=== PATIENT | female | born 1945 | race Caucasian/White ===

== ENCOUNTER → 2016-09-23 | Outpatient (CLI) | payer MEDICARE ==
[2016-06-18 19:57] VITALS: BP 147/75
[~2016-09-23] MED LIST: DIAZ5TAB PO; HYDR-971 PO
--- NOTE | 2016-09-23 15:55 | KCIC ---
PROCEDURE KUB. HISTORY Pelvic pain and pressure for 3 weeks with constipation. TECHNIQUE KUB contains 2 images. COMPARISON None. FINDINGS No dilated small bowel loop is apparent. Stool burden in the colon is increased. No definite calculus projecting over the left renal shadow is apparent. 2 millimeter calculus projecting over the right renal shadow is noted. There are degenerative changes in the spine. There are calcified phleboliths in the pelvis. IMPRESSION Nonobstructive bowel gas pattern. Electronically signed by: Derek Carbajal MD (Sep 23, 2016 15:54:08)
== END ==
LOC: KCIC MRI 15:07
PROVIDERS: ATTEND Psychiatry & Neurology Neurology with Special Qualifications in Child Neurology
DX: K59.00 Constipation, unspecified (principal); R10.2 Pelvic and perineal pain
CPT/HCPCS: 74000

== ENCOUNTER 2016-10-14 14:40 | Emergency (ER) | payer MEDICARE, OTHER ==
[~2016-10-14] VITALS: Ht 165.1 cm; Wt 63.5 kg
--- NOTE | 2016-10-14 15:31 | PHYS DOC ---
Past Medical History Past Medical History: Arthritis, Diabetes-Type II, Other Additional Past Medical Histor: neuropathy, tremors Past Surgical History: Other Additional Past Surgical Histo: stomach, blood clot on breast, hemorrhoids Alcohol Use: None Drug Use: None Adult General Chief Complaint Chief Complaint: MECHANICAL FALL [facility] HPI Patient is a 70 year old female who presents with complaint of head injury and right ring finger pain after suffering a mechanical fall prior to arrival. The patient states that she lost her balance while walking outside and fell, hitting the left side of her head on concrete. Patient denies loss of consciousness. The patient states that bystanders helped her to her feet. Patient states that she was able to ambulate with assistance. The patient was taken home by bystanders. The patient was brought to the emergency department by family for further evaluation. The patient has history of tremors and follows a Dr. Roca. Patient states that she has been having worsening tremors over the past 2 weeks and she thinks that this may have caused her to fall. Patient denied any chest pain, lightheadedness, or dizziness prior to her fall. Review of Systems Review of Systems Constitutional: Denies fever or chills [] Eyes: Denies change in visual acuity, redness, or eye pain [] HENT: Denies nasal congestion or sore throat [] Respiratory: Denies cough or shortness of breath [] Cardiovascular: No additional information not addressed in HPI [] GI: Denies abdominal pain, nausea, vomiting, bloody stools or diarrhea [] : Denies dysuria or hematuria [] Musculoskeletal: Right ring finger pain [] Integument: Denies rash or skin lesions [] Neurologic: Headache, denies focal weakness or sensory changes [] Allergies Allergies Allergies Coded Allergies Type Severity Reaction Last Updated Verified No Known Drug Allergies 02/08/15 No Physical Exam Physical Exam Constitutional: Well developed, well nourished, no acute distress, non-toxic appearance. [] HENT: Normocephalic, mild soft tissue swelling along left temporoparietal region with superficial abrasion, no lacerations, bilateral external ears normal , oropharynx moist, no oral exudates, nose normal. [] Eyes: PERRLA, EOMI, conjunctiva normal, no discharge. [] Neck: Normal range of motion, no tenderness, supple, no stridor. [] Cardiovascular:Heart rate regular rhythm, no murmur [] Lungs & Thorax: Bilateral breath sounds clear to auscultation [] Abdomen: Bowel sounds normal, soft, no tenderness, no masses, no pulsatile masses. [] Skin: Warm, dry, no erythema, no rash. [] Back: No tenderness, no CVA tenderness. [] Extremities: Moderate PIP joint swelling of right ring finger with ecchymosis, limited range of motion secondary to pain, capillary refill 2+ distally, no other obvious musculoskeletal deformities. [] Neurologic: Alert and oriented X 3, normal motor function, normal sensory function, no focal deficits noted. [] Current Patient Data Vital Signs Vital Signs Date Time Temp Pulse Resp B/P Pulse Ox O2 Delivery O2 Flow Rate FiO2 10/14/16 15:00 98.5 100 20 120/89 95 Room Air 98.5 EKG EKG Interpreted by me: Heart rate 97, sinus tachycardia, normal intervals, normal axis, no acute ST/T-wave abnormalities present [] Radiology/Procedures Radiology/[place] [address] IMAGING REPORT Signed PATIENT: FRANCIA YANES ACCOUNT: [id number] : 1945 LOCATION: ER AGE: 70 SEX: F EXAM STATUS: REG ER ORD. PHYSICIAN: ROBB DILLON MD REASON: ring finger injury PROCEDURE: HAND RIGHT 3V Portable right hand, 3 views, 10/14/2016: History: Fall, injury There is patchy bony demineralization. There are degenerative changes at scattered interphalangeal joints and the first CMC joint. No acute fracture or dislocation is identified. IMPRESSION: No acute bony abnormality is detected. DICTATED and SIGNED BY: YOLANDA MADRID MD DATE: 10/14/16 1547 CC: ROBB DILLON MD; DAWNA LUDWIG MD ~ [place] [id number] IMAGING REPORT Signed PATIENT: FRANCIA YANES ACCOUNT: [id number] : 1945 LOCATION: ER AGE: 70 SEX: F EXAM STATUS: REG ER ORD. PHYSICIAN: ROBB DILLON MD REASON: fall, left-sided head injury PROCEDURE: HEAD WO CONTRAST CT of the head without contrast, 10/14/2016: History: Fall Comparison is made to a study from 07/31/2015. There is mild cerebral atrophy. The ventricles are within normal limits in size. There is no shift of the midline structures. There is no evidence of acute intracranial hemorrhage or mass effect. Minimal bilateral deep white matter lucencies are noted compatible with chronic ischemic change. IMPRESSION: 1. Chronic findings as described above. 2. No acute intracranial abnormality is detected. PQRS Compliance Statement: One or more of the following individualized dose reduction techniques were utilized for this examination: 1. Automated exposure control 2. Adjustment of the mA and/or kV according to patient size 3. Use of iterative reconstruction technique DICTATED and SIGNED BY: YOLANDA MADRID MD DATE: 10/14/16 161 CC: ROBB DILLON MD; DAWNA LUDWIG MD ~ [] Course & Med Decision Making Course & Med Decision Making Pertinent Labs and Imaging studies reviewed. (See chart for details) The patient lead and unremarkable course in the emergency department. The patient's CT imaging and hand x-rays were both negative for severe injury. I spoke with Dr. Roca, patient's neurologist, in regard to the patient's tremors. He stated that he did not want to make any medication changes at this time until he had a chance to see her in the office within the next week. Due to headaches, the patient does display symptoms consistent with mild concussion from her head injury. Patient was given head injury precautions while in the emergency department. Advised to return to the emergency department for any worsening symptoms. Patient voiced understanding and in agreement with treatment plan. Dragon Disclaimer Dragon Disclaimer This electronic medical record was generated, in whole or in part, using a voice recognition dictation system. Departure Departure Impression: Primary Impression: Closed head injury with concussion Additional Impression: Finger sprain Disposition: 01 HOME, SELF-CARE Condition: IMPROVED Referrals: DAWNA LUDWIG MD (PCP) GISSELL ROCA MD Patient Instructions: Finger Sprain, Head Injury, Adult Additional Instructions: Call Dr. Roca's office tomorrow morning to schedule an appointment within one week. Return to the emergency department for any worsening symptoms. Problem Qualifiers Primary Impression: Closed head injury with concussion Encounter type: initial encounter Loss of consciousness presence/duration: without LOC Qualified Code: S06.0X0A - Concussion without loss of consciousness, initial encounter Additional Impression: Finger sprain Encounter type: initial encounter Finger: ring finger Sprain of finger site : interphalangeal joint Laterality: right Qualified Code: S63.634A - Sprain of interphalangeal joint of right ring finger, initial encounter ROBB DILLON MD Oct 14, 2016 15:31
--- NOTE | 2016-10-14 15:53 | RAD ---
Portable right hand, 3 views, 10/14/2016: History: Fall, injury There is patchy bony demineralization. There are degenerative changes at scattered interphalangeal joints and the first CMC joint. No acute fracture or dislocation is identified. IMPRESSION: No acute bony abnormality is detected.
--- NOTE | 2016-10-14 15:59 | EKG ---
[facility] [address] [place] [address] Test Date: 2016-10-14 Test Time: 15:47:13 Pat Name: FRANCIA YANES Department: Room: Gender: F Endoscope Technician: : 1945 Requested By: ROBB DILLON Order Number: [id number] Reading MD: Measurements Intervals [place] Rate: 97 P: 56 OK: 130 QRS: 24 QRSD: 74 T: 39 QT: 324 QTc: 415 Interpretive Statements SINUS RHYTHM OTHERWISE NORMAL ECG RI6.01 No previous ECG available for comparison
--- NOTE | 2016-10-14 16:15 | RAD ---
CT of the head without contrast, 10/14/2016: History: Fall Comparison is made to a study from 07/31/2015. There is mild cerebral atrophy. The ventricles are within normal limits in size. There is no shift of the midline structures. There is no evidence of acute intracranial hemorrhage or mass effect. Minimal bilateral deep white matter lucencies are noted compatible with chronic ischemic change. IMPRESSION: 1. Chronic findings as described above. 2. No acute intracranial abnormality is detected. PQRS Compliance Statement: One or more of the following individualized dose reduction techniques were utilized for this examination: 1. Automated exposure control 2. Adjustment of the mA and/or kV according to patient size 3. Use of iterative reconstruction technique
[2016-10-14 17:00] VITALS: BP 121/56
== END 2016-10-14 17:29 | disposition home or self-care (01) ==
LOC: ER 14:40
DX: S06.0X0A Concussion without loss of consciousness, initial encounter (principal); S63.614A Unspecified sprain of right ring finger, initial encounter; E11.40 Type 2 diabetes mellitus with diabetic neuropathy, unspecified; M19.90 Unspecified osteoarthritis, unspecified site; W18.39XA Other fall on same level, initial encounter; Y93.01 Activity, walking, marching and hiking; Y92.89 Other specified places as the place of occurrence of the external cause; Y99.8 Other external cause status
CPT/HCPCS: 70450; 73130; 93005; 99284-25

== ENCOUNTER 2016-11-27 16:20 | Inpatient (IN) | payer MEDICARE ==
[~2016-11-27] VITALS: Ht 152.4 cm; Wt 63.0 kg
[2016-11-27] MEDS ORDERED: FENTANYL PF 100 MCG/2 ML VIAL. IV PRN (17:00)
--- NOTE | 2016-11-27 17:07 | PHYS DOC ---
Past Medical History Past Medical History: Arthritis, Diabetes-Type II, Other Additional Past Medical Histor: neuropathy, tremors Past Surgical History: Other Additional Past Surgical Histo: stomach, blood clot on breast, hemorrhoids, stomach stent x 2 Alcohol Use: None Drug Use: None Adult General Chief Complaint Chief Complaint: NAUSEA/VOMITING/DIARRHA HPI HPI Patient is a 70 year old female who presents with complaint of nausea and vomiting. Patient has had symptoms present over the past 2 days. Patient states that she also was having back pain and constipation which prompted her to take magnesium citrate yesterday. Patient states that she was able to have several well-formed stools after taking the magnesium citrate, however patient has developed worsening lightheadedness, nausea, and vomiting which has persisted throughout the day today. Patient is actively vomiting on my interview. Patient denies any chest pain or abdominal pain at this time. Patient has felt feverish but has not taken her temperature at home. Patient states that she is having difficulty being able to stand due to lightheadedness and weakness. Patient unable to tolerate oral intake at this time. Review of Systems Review of Systems Constitutional: Denies fever or chills [] Eyes: Denies change in visual acuity, redness, or eye pain [] HENT: Denies nasal congestion or sore throat [] Respiratory: Denies cough or shortness of breath [] Cardiovascular: Denies chest pain or edema [] GI: Nausea, vomiting, constipation [] : Denies dysuria or hematuria [] Musculoskeletal: Denies back pain or joint pain [] Integument: Denies rash or skin lesions [] Neurologic: Denies headache, focal weakness or sensory changes [] Current Medications Current Medications Current Medications Medications (Trade) Dose Ordered Sig/Rafita Start Time Stop Time Status Last Admin Dose Admin Famotidine (Pepcid) 20 mg 1X ONCE 11/27/16 17:15 11/27/16 17:16 DC 11/27/16 17:31 20 MG Fentanyl Citrate 50 mcg 50 mcg PRN Q15MIN PRN 11/27/16 17:00 11/28/16 16:59 Ondansetron HCl (Zofran) 4 mg 1X ONCE 11/27/16 17:15 11/27/16 17:16 DC 11/27/16 17:30 4 MG Sodium Chloride (Iv Sodium Chloride 0.9% 1000ml Bag) 1,000 ml @ 1,000 mls/hr Q1H 11/27/16 17:15 11/27/16 18:14 DC 11/27/16 17:31 1,000 MLS/HR Allergies Allergies Allergies Coded Allergies Type Severity Reaction Last Updated Verified No Known Drug Allergies 02/08/15 No Physical Exam Physical Exam Constitutional: Alert, afebrile, diaphoretic, appears ill. [] HENT: Normocephalic, atraumatic, bilateral external ears normal, oropharynx moist, no oral exudates, nose normal. [] Eyes: PERRLA, EOMI, conjunctiva normal, no discharge. [] Neck: Normal range of motion, no tenderness, supple, no stridor. [] Cardiovascular: Tachycardia, regular rhythm, no murmur [] Lungs & Thorax: Bilateral breath sounds clear to auscultation [] Abdomen: Bowel sounds normal, soft, no tenderness, no masses, no pulsatile masses. [] Skin: Warm, dry, no erythema, no rash. [] Back: No tenderness, no CVA tenderness. [] Extremities: No tenderness, no cyanosis, no clubbing, ROM intact, no edema. [] Neurologic: Alert and oriented X 3, normal motor function, normal sensory function, no focal deficits noted. [] Current Patient Data Vital Signs Vital Signs Date Time Temp Pulse Resp B/P Pulse Ox O2 Delivery O2 Flow Rate FiO2 11/27/16 18:20 90 20 136/81 98 Room Air 11/27/16 16:20 99.1 99.1 Lab Values Laboratory Tests Test 11/27/16 16:55 11/27/16 16:59 White Blood Count 8.5x10^3/uL (4.0-11.0) Red Blood Count 4.29x10^6/uL (3.50-5.40) Hemoglobin 12.9g/dL (12.0-15.5) Hematocrit 39.2% (36.0-47.0) Mean Corpuscular Volume 91fL (79-100) Mean Corpuscular Hemoglobin 30pg (25-35) Mean Corpuscular Hemoglobin Concent 33g/dL (31-37) Red Cell Distribution Width 13.3% (11.5-14.5) Platelet Count 257x10^3/uL (140-400) Neutrophils (%) (Auto) 70% (31-73) Lymphocytes (%) (Auto) 22% (24-48) L Monocytes (%) (Auto) 7% (0-9) Eosinophils (%) (Auto) 1% (0-3) Basophils (%) (Auto) 1% (0-3) Neutrophils # (Auto) 5.9x10^3uL (1.8-7.7) Lymphocytes # (Auto) 1.9x10^3/uL (1.0-4.8) Monocytes # (Auto) 0.6x10^3/uL (0.0-1.1) Eosinophils # (Auto) 0.0x10^3/uL (0.0-0.7) Basophils # (Auto) 0.0x10^3/uL (0.0-0.2) Sodium Level 141mmol/L (136-145) Potassium Level 4.2mmol/L (3.5-5.1) Chloride Level 98mmol/L (98-107) Carbon Dioxide Level 31mmol/L (21-32) Anion Gap 12 (6-14) Blood Urea Nitrogen 12mg/dL (7-20) Creatinine 0.8mg/dL (0.6-1.0) Estimated GFR (Cockcroft-Gault) 71.3 BUN/Creatinine Ratio 15 (6-20) Glucose Level 228mg/dL (70-99) H Lactic Acid Level 2.1mmol/L (0.4-2.0) H Calcium Level 10.0mg/dL (8.5-10.1) Total Bilirubin 0.6mg/dL (0.2-1.0) Aspartate Amino Transferase (AST) 15U/L (15-37) Alanine Aminotransferase (ALT) 25U/L (14-59) Alkaline Phosphatase 81U/L (46-116) Total Protein 8.4g/dL (6.4-8.2) H Albumin 4.2g/dL (3.4-5.0) Albumin/Globulin Ratio 1.0 (1.0-1.7) Lipase 71U/L (73-393) L Glucose (Fingerstick) 228mg/dL (70-99) H Laboratory Tests 11/27/16 16:55 Laboratory Tests 11/27/16 16:55 EKG EKG Interpreted by me: Heart rate 90, sinus rhythm, normal intervals, normal axis, no acute ST/T-wave abnormalities present [] Radiology/Procedures Radiology/Procedures [facility] [address] [place] [address] IMAGING REPORT Signed PATIENT: FRANCIA YANES ACCOUNT: [id number] : 1945 LOCATION: ER AGE: 70 SEX: F EXAM STATUS: REG ER ORD. PHYSICIAN: ROBB DILLON MD REASON: nausea, vomiting PROCEDURE: ACUTE ABDOMEN SERIES Acute abdomen series with chest, 3 views, 11/27/2016: History: Nausea and vomiting, constipation There is a small amount of gas in the GI tract without significant bowel distention. There are several small scattered air-fluid levels. No free air seen in the abdomen. There is no evidence of organomegaly. The heart size is normal. No pulmonary infiltrates are seen. There is a calcified granuloma in the right base. There is no evidence of pleural fluid. IMPRESSION: Several small scattered air-fluid levels in the GI tract may reflect a mild ileus DICTATED and SIGNED BY: YOLANDA MADRID MD DATE: 11/27/161726 CC: ROBB DILLON MD; DAWNA LUDWIG MD ~ [] Course & Med Decision Making Course & Med Decision Making Pertinent Labs and Imaging studies reviewed. (See chart for details) Patient was given IV fluids, Pepcid, and Zofran. Despite treatment with multiple doses of Zofran, the patient continues to have nausea and is unable to tolerate oral intake at this time. The patient's abdominal x-ray shows a mild ileus. Initial workup otherwise unremarkable. Due to continued nausea and vomiting, the patient will require admission to the hospital for continued evaluation and treatment. I spoke with Dr. Ludwig who accepted care patient in hospital. Dragon Disclaimer Dragon Disclaimer This electronic medical record was generated, in whole or in part, using a voice recognition dictation system. Departure Departure Impression: Primary Impression: Intractable nausea and vomiting Additional Impressions: Ileus Elevated lactic acid level Type 2 diabetes mellitus Disposition: 09 ADMITTED INPATIENT Admitting Physician: Dawna Ludwig Condition: STABLE Referrals: DAWNA LUDWIG MD (PCP) Problem Qualifiers Primary Impression: Intractable nausea and vomiting Vomiting type: unspecified Qualified Code: R11.2 - Nausea with vomiting, unspecified Additional Impressions: Type 2 diabetes mellitus Diabetes mellitus complication status: with hyperglycemia Diabetes mellitus intermediate teacher insulin use: unspecified detention insulin use status Qualified Code : E11.65 - Type 2 diabetes mellitus with hyperglycemia ROBB DILLON MD Nov 27, 2016 17:07
[2016-11-27 17:09] LABS: BASO % 1 % (0-3); EOS % 1 % (0-3); HEMATOCRIT 39.2 % (36.0-47.0); HEMOGLOBIN 12.9 g/dL (12.0-15.5); LYMPH # 1.9 x10^3/uL (1.0-4.8); LYMPH % 22 % (24-48); MEAN CORPUSCULAR HEMOGLOBIN 30 pg (25-35); MEAN CORPUSCULAR HGB CONC 33 g/dL (31-37); MEAN CORPUSCULAR VOLUME 91 fL (79-100); MONO % 7 % (0-9); NEUT % 70 % (31-73); PLATELET COUNT 257 x10^3/uL (140-400); RED BLOOD COUNT 4.29 x10^6/uL (3.50-5.40); RED CELL DISTRIBUTION WIDTH 13.3 % (11.5-14.5); WHITE BLOOD COUNT 8.5 x10^3/uL (4.0-11.0)
[2016-11-27] MEDS ORDERED: FAMOTIDINE 20 MG/2 ML VIAL IVP ONE (17:15)
[2016-11-27] MEDS ORDERED: IV NORMAL SALINE 1000ML BAG 1,000 ML IV SCH (17:15)
[2016-11-27] MEDS ORDERED: ONDANSETRON PF 4 MG/2 ML VIAL. IV ONE ×2 (17:15→18:30)
--- NOTE | 2016-11-27 17:32 | RAD ---
Acute abdomen series with chest, 3 views, 11/27/2016: History: Nausea and vomiting, constipation There is a small amount of gas in the GI tract without significant bowel distention. There are several small scattered air-fluid levels. No free air seen in the abdomen. There is no evidence of organomegaly. The heart size is normal. No pulmonary infiltrates are seen. There is a calcified granuloma in the right base. There is no evidence of pleural fluid. IMPRESSION: Several small scattered air-fluid levels in the GI tract may reflect a mild ileus
[2016-11-27 17:34] LABS: CREATININE 0.8 mg/dL (0.6-1.0); GFR 71.3; POTASSIUM 4.2 mmol/L (3.5-5.1)
[2016-11-27 17:37] LABS: ALBUMIN 4.2 g/dL (3.4-5.0); TOTAL BILIRUBIN 0.6 mg/dL (0.2-1.0); TOTAL PROTEIN 8.4 g/dL (6.4-8.2)
--- NOTE | 2016-11-27 19:00 | ACF ---
Admission Forms Criteria VOMITING Clinical Indications for Admission to Inpatient Care ( Place 'X' for any and all applicable criteria): Admission is indicated for ANY ONE of the following(1)(2)(3): [X]I. Inpatient admission required rather than observation care because of ANY ONE of the following: [ ]i) Hemodynamic instability that is severe or persistent [X]ii) Vomiting that is severe or persistent [ ]iii) Severe electrolyte abnormalities requiring inpatient care [ ]iv) Severe pain requiring acute inpatient management [ ]v) High fever or infection requiring inpatient admission as indicated by ANY ONE of the following(7)(8): [ ]1) Appropriate outpatient or observation care antimicrobial treatment unavailable, not effective, or not feasible [ ]2) Documented bacteremia [ ]3) Temp >104.9 degrees F (40.5 degrees C) (oral) [ ]4) Temp >103.1 degrees F (39.5 C) (oral) or <96.8 degrees F (36 C) (rectal) that does not respond to all emergency treatment measures [ ]vi) Acute renal failure [ ]vii) IV fluid to replace significant ongoing losses (greater than 3 L/m2 per day) [ ]viii) Parenteral nutrition regimen that must be implemented on inpatient basis [ ]ix) Other condition, treatment or monitoring requiring inpatient admission [ ]II. Complete or partial gastrointestinal obstruction [ ]III. Other cause of vomiting requiring hospitalization (eg, poisoning, increased intracranial pressure) [ ]IV. Vomiting due to significant metabolic derangement (eg, severe hypercalcemia, diabetic ketoacidosis) Extended stay beyond goal length of stay may be needed for(1)(4): [ ]a) Severe vomiting [ ]b) Persistent vomiting, vital sign changes, severe electrolyte imbalance , or diagnosed cause of vomiting that requires continued hospitalization (eg, gastrointestinal obstruction , increased intracranial pressure) [ ]c) Surgery to treat identified causes of vomiting (eg, bowel obstruction , intracranial process) [ ]d) Comorbid illness that requires inpatient care (eg, acute heart failure , renal failure) [ ]e) Need for inpatient endoscopy The original [facility] [employer] content created by [employer] has been revised. The portions of the content which have been revised are identified through the use of italic text or in bold, and [facility] [employer] has neither reviewed nor approved the modified material. All other unmodified content is copyright [facility]. Please see references footnoted in the original [facility] edition 2016 Admission Criteria Met?: Yes MARIA E THOMSON Nov 27, 2016 19:00
[2016-11-27 19:06] LABS: BILIRUBIN,URINE NEGATIVE (NEG); GLUCOSE,URINE 100 mg/dL (NEG); NITRITE,URINE NEGATIVE (NEG); PROTEIN,URINE NEGATIVE (NEG-TRACE); UROBILINOGEN,URINE 0.2 mg/dL (0.2 mg/dL)
[2016-11-27 19:21] LABS: BACTERIA,URINE 0 /HPF (0-FEW); RBC,URINE 0 /HPF (0-2); SQUAMOUS EPITHELIAL CELL,UR OCC /LPF; WBC,URINE OCC /HPF (0-4)
[2016-11-27 20:00] VITALS: BP 138/62
[2016-11-27] MEDS: IV NORMAL SALINE 1000ML BAG 1,000 ML IV SCH (20:16)
[2016-11-27 23:00] VITALS: BP 146/67
[2016-11-27] MEDS: ONDANSETRON PF 4 MG/2 ML VIAL. IV PRN (23:40)
[2016-11-27] MEDS ORDERED: DULO60CA6 PO (23:53)
[2016-11-27] MEDS ORDERED: ASPI-482 PO (23:53)
[2016-11-27] MEDS ORDERED: DICY10CA3 PO (23:53)
[2016-11-27] MEDS ORDERED: ALPR1TAB6 PO (23:53)
[2016-11-27] MEDS ORDERED: insulin (23:53)
[2016-11-27] MEDS ORDERED: ALPR0.5T6 PO (23:53)
[2016-11-27] MEDS ORDERED: METF10002 PO (23:53)
[2016-11-27] MEDS ORDERED: ATOR40TA59 PO (23:53)
[2016-11-27] MEDS ORDERED: GABA600T2 PO ×2 (23:53)
[2016-11-27] MEDS ORDERED: VENL37.57 PO (23:53)
[2016-11-28] MEDS: PROMETHAZINE 12.5 MG in IV NORMAL SALINE 50ML 50 ML IV PRN ×2 (00:50→12:28)
[2016-11-28 03:00] VITALS: BP 124/59
[2016-11-28 05:33] LABS: BASO % 0 % (0-3); EOS % 1 % (0-3); HEMATOCRIT 34.8 % (36.0-47.0); HEMOGLOBIN 11.2 g/dL (12.0-15.5); LYMPH # 2.3 x10^3/uL (1.0-4.8); LYMPH % 30 % (24-48); MEAN CORPUSCULAR HEMOGLOBIN 30 pg (25-35); MEAN CORPUSCULAR HGB CONC 32 g/dL (31-37); MEAN CORPUSCULAR VOLUME 93 fL (79-100); MONO % 9 % (0-9); NEUT % 61 % (31-73); PLATELET COUNT 219 x10^3/uL (140-400); RED BLOOD COUNT 3.75 x10^6/uL (3.50-5.40); RED CELL DISTRIBUTION WIDTH 13.4 % (11.5-14.5); WHITE BLOOD COUNT 7.8 x10^3/uL (4.0-11.0)
[2016-11-28] MEDS: IV NORMAL SALINE 1000ML BAG 1,000 ML IV SCH ×3 (05:48→21:34)
[2016-11-28 05:56] LABS: CALCIUM 8.7 mg/dL (8.5-10.1); CREATININE 0.7 mg/dL (0.6-1.0); GFR 83.2
[2016-11-28 06:01] LABS: POTASSIUM 4.2 mmol/L (3.5-5.1)
[2016-11-28 07:45] VITALS: BP 132/52
--- NOTE | 2016-11-28 09:08 | EKG ---
[facility] [address] [place] [address] Test Date: 2016-11-27 Test Time: 18:00:20 Pat Name: FRANCIA YANES Department: Room: 2 1 Gender: F Director [employer]: : 1945 Requested By: ROBB DILLON Order Number: [id number] Reading MD: Faith Willis Measurements Intervals [place] Rate: 90 P: 127 [place]: 144 QRS: 11 QRSD: 80 T: 33 QT: 370 QTc: 457 Interpretive Statements SINUS RHYTHM NORMAL ECG RI6.01 Compared to ECG 10/14/2016 15:47:13 No significant changes Electronically Signed On 11-29-2016 18:59:06 CDT by Faith Willis
[2016-11-28] MEDS ORDERED: ALPRAZOLAM 1 MG TABLET PO PRN (10:30)
[2016-11-28] MEDS ORDERED: ALPRAZOLAM 0.5 MG TABLET. PO PRN (10:30)
[2016-11-28] MEDS ORDERED: ONDANSETRON PF 4 MG/2 ML VIAL. IV PRN (10:45)
[2016-11-28] MEDS ORDERED: DEXTROSE 50% 25 GM / 50ML DISP.SYRIN. IV PRN (10:45)
--- NOTE | 2016-11-28 10:47 | PDOC ---
Provider Note Provider Note See admission H&P dictation #[id number] Impression: 1. Intractable vomiting with ileus: 2. Diabetes mellitus type 2: 3. Chronic anxiety: 4. Essential tremor: 5. Hypertension 6. History of chronic constipation: DAWNA LUDWIG MD Nov 28, 2016 10:47
[2016-11-28] MEDS: ONDANSETRON PF 4 MG/2 ML VIAL. IV PRN (11:16)
[2016-11-28] MEDS: VENLAFAXINE XR 37.5 MG CAP.ER.24H. PO SCH (11:17)
[2016-11-28] MEDS: ASPIRIN ENTERIC COATED 81 MG TABLET.DR. PO SCH (11:17)
[2016-11-28 11:36] VITALS: BP 136/65
--- NOTE | 2016-11-28 12:00 | HP ---
ADMIT DATE: 11/28/2016 ATTENDING PHYSICIAN: Dawna Ludwig M.D. CHIEF COMPLAINT: Nausea and vomiting. HISTORY OF PRESENT ILLNESS: The patient is a 70-year-old female with a history of chronic intermittent constipation who had worsening constipation over the course of last week. Approximately 2 days prior to admission, the constipation was so bad that she took a bottle of magnesium citrate. She then had several bowel movements. They were very hard initially and then loosened up. After that she started to have emesis all night and on the day of admission prompting her evaluation in the Emergency Room. She did have some blood on the tissue paper after the hard bowel movements, but did not have any blood in her stool. She denies any fevers. She has not had any blood in her emesis. She is having somewhat diffuse abdominal pain that was going through to her back at times. She is also feeling lightheaded with standing. She was unable to have any oral intake and was not able to take any liquids or food. When she was seen in the Emergency Room, despite IV fluid she was unable to tolerate any food by mouth. 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 PAST SURGICAL HISTORY: Hysterectomy with right oophorectomy, left breast excisional biopsy, hemorrhoid surgery x 4, cataract surgery. SOCIAL HISTORY: She did smoke in the past, but quit in 1985. She denies any alcohol use. She lives at home by herself, but has a supportive family. FAMILY HISTORY: Significant for heart disease and emphysema in her mother, heart disease and emphysema in her father. ALLERGIES TO MEDICATIONS: No known drug allergies. MEDICATIONS: At the time of admission include Xanax 0.5-1 mg p.o. b.i.d. p.r.n., aspirin 81 mg p.o. daily, Lantus 75 units subcutaneously b.i.d., NovoLog 22 units subcutaneously t.i.d. with meals, atorvastatin 40 mg p.o. daily, dicyclomine 10 mg p.o. t.i.d. p.r.n. abdominal pain, gabapentin 600 mg p.o. t.i.d., metformin 1000 mg p.o. b.i.d., Effexor XR 37.5 mg p.o. daily. REVIEW OF SYSTEMS: The patient denies any fevers. She has not had any upper respiratory congestion. She has normally been swallowing without any difficulty. Her blood sugars have been running a little bit higher than normal lately. She denies any chest pain or palpitations. She denies any lower extremity swelling. She denies any shortness of breath or cough. She denies any hematemesis. She denies any dysuria or hematuria. She has been voiding normally. She denies any focal paresthesias or weakness. Her tremors are doing better overall. Her mood has been doing pretty good, although she does still have some anxiety at times. PHYSICAL EXAMINATION: VITAL SIGNS: At the time of admission, temperature 99.1, pulse 111, respiratory rate 24, blood pressure 140/110, O2 sat 95% on room air. GENERAL: The patient is well developed, well-nourished female in no acute distress. She is mildly ill appearing, lying in bed. She is alert and oriented. HEENT: The pupils are equal and round. The extraocular motions are intact. Sclerae are anicteric. Oropharynx is moist. NECK: Without JVD or bruit. There is no significant adenopathy, no thyromegaly. CHEST: Clear to auscultation bilaterally with okay air movement. CARDIOVASCULAR: The heart has a regular rate and rhythm without murmur. ABDOMEN: There are rare bowel sounds. It is soft and nondistended. There is minimal diffuse tenderness without any rebound tenderness. EXTREMITIES: No edema or clubbing. NEUROLOGIC: Grossly intact and nonfocal. She does have a mild tremor. PSYCHIATRIC: Mood and affect appear appropriate. LABORATORY DATA: At the time of admission, WBC 8.5, hemoglobin 12.9, hematocrit 39.2, platelets 257. UA shows specific gravity of 1.015, glucose 100, ketones negative, nitrite and leukocyte esterase negative. Sodium 141, potassium 4.2, chloride 98, CO2 31, BUN 12, creatinine 0.8, glucose 228. LFTs are within normal limits. Albumin was 4.2. Lipase 71. Acute abdominal series showed several small scattered air fluid levels in the GI tract, which may reflect mild ileus. There are no pulmonary infiltrates. IMPRESSION: 1. 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 2. Diabetes mellitus type 2. 3. Chronic anxiety. 4. Essential tremor. 5. Hypertension. 6. History of chronic constipation. PLAN: The patient is admitted for IV fluids. We will attempt to control her blood sugars, but we will decrease her insulin at present since she is still not able to take anything by mouth. We will gradually introduce clear liquids if she is able. She was not getting any relief with her nausea and vomiting with Zofran, so she has had a little bit of improvement with Phenergan and will continue that. We will continue her other home medications as she is able to take them, particularly her gabapentin and Amitiza. She will use Xanax as needed for anxiety, although she seems to be doing fairly well with that right now. We will repeat a KUB in the morning to see if she has any improvement in her ileus type symptoms. Further treatment will be based on how she responds to IV fluids and nausea medication. We will decrease her insulin as noted above until she is able to tolerate better nutrition by mouth. DAWNA LUDWIG MD DR: ROSALINO/zina JOB#: [id number] / [id number]
[2016-11-28] MEDS: INSULIN ASPART 300 UNITS/3 ML INSULN.PEN SQ SCH ×2 (12:25→17:14)
[2016-11-28] MEDS: GABAPENTIN 300 MG CAPSULE. PO SCH ×2 (14:53→21:33)
[2016-11-28 15:45] VITALS: BP 124/56
[2016-11-28] MEDS: METFORMIN 1,000 MG TABLET PO SCH (17:10)
[2016-11-28] MEDS: LUBIPROSTONE 8 MCG CAPSULE PO SCH (17:10)
[2016-11-28 19:15] VITALS: BP 132/76
[2016-11-28] MEDS: INSULIN DETEMIR 300 UNITS/3 ML INSULN.PEN. SQ SCH (21:34)
[2016-11-28 23:15] VITALS: BP 148/65
[2016-11-28] MEDS: HYDROCODONE/APAP 5/325MG TABLET. PO PRN (23:34)
[2016-11-29 03:15] VITALS: BP 107/55
[2016-11-29 05:03] LABS: BASO % 1 % (0-3); EOS % 2 % (0-3); HEMATOCRIT 32.5 % (36.0-47.0); HEMOGLOBIN 10.8 g/dL (12.0-15.5); LYMPH # 2.4 x10^3/uL (1.0-4.8); LYMPH % 41 % (24-48); MEAN CORPUSCULAR HEMOGLOBIN 31 pg (25-35); MEAN CORPUSCULAR HGB CONC 33 g/dL (31-37); MEAN CORPUSCULAR VOLUME 93 fL (79-100); MONO % 7 % (0-9); NEUT % 49 % (31-73); PLATELET COUNT 203 x10^3/uL (140-400); RED BLOOD COUNT 3.51 x10^6/uL (3.50-5.40); RED CELL DISTRIBUTION WIDTH 13.2 % (11.5-14.5); WHITE BLOOD COUNT 5.9 x10^3/uL (4.0-11.0)
[2016-11-29] MEDS: IV NORMAL SALINE 1000ML BAG 1,000 ML IV SCH ×2 (05:23→16:55)
[2016-11-29 05:30] LABS: CALCIUM 8.5 mg/dL (8.5-10.1); CREATININE 0.6 mg/dL (0.6-1.0); GFR 99.4; POTASSIUM 3.8 mmol/L (3.5-5.1)
[2016-11-29 07:55] VITALS: BP 112/53
[2016-11-29] MEDS: INSULIN ASPART 300 UNITS/3 ML INSULN.PEN SQ SCH ×3 (08:00→16:54)
[2016-11-29] MEDS: METFORMIN 1,000 MG TABLET PO SCH ×2 (08:32→16:46)
[2016-11-29] MEDS: ASPIRIN ENTERIC COATED 81 MG TABLET.DR. PO SCH (08:32)
[2016-11-29] MEDS: GABAPENTIN 300 MG CAPSULE. PO SCH ×3 (08:32→20:04)
[2016-11-29] MEDS: VENLAFAXINE XR 37.5 MG CAP.ER.24H. PO SCH (08:32)
[2016-11-29] MEDS: LUBIPROSTONE 8 MCG CAPSULE PO SCH (08:32)
[2016-11-29] MEDS: INSULIN DETEMIR 300 UNITS/3 ML INSULN.PEN. SQ SCH ×2 (08:33→21:22)
[2016-11-29 11:24] VITALS: BP 141/66
--- NOTE | 2016-11-29 14:45 | RAD ---
EXAM: Abdomen, 2 views. HISTORY: Ileus. COMPARISON: 11/27/2016. FINDINGS: Frontal upright and supine views of the abdomen are obtained. There is gas within nondistended large and small bowel. There is no free air. There is no transition point to suggest obstruction. No abnormal bowel dilatation is seen. There is no free air. IMPRESSION: Nonobstructive bowel gas pattern.
--- NOTE | 2016-11-29 14:54 | PDOC ---
SUBJECTIVE Subjective Tried to eat some clear liquids but felt little bit nauseous. Some spitting up afterwards. Passing gas but no bowel movement. Abdominal discomfort is doing better but mostly localized in the lower abdomen. No shortness of breath. OBJECTIVE Vital Signs Vital Signs Date Time Temp Pulse Resp B/P Pulse Ox O2 Delivery O2 Flow Rate FiO2 11/29/16 11:24 98.6 78 16 141/66 97 Room Air 98.6 11/29/16 08:00 Room Air 11/29/16 07:55 97.9 79 16 112/53 98 Room Air 97.9 11/29/16 03:15 98.4 75 16 107/55 98 Room Air 98.4 11/28/16 23:15 98.1 74 16 148/65 98 Room Air 98.1 11/28/16 20:10 Room Air 11/28/16 19:15 97.9 81 16 132/76 98 Room Air 97.9 11/28/16 15:45 98.6 82 17 124/56 99 Room Air 98.6 I & O Intake and Output 11/29/16 07:00 Intake Total 550 ml Balance 550 ml Intake Oral 550 ml # Voids 6 PHYSICAL EXAM Physical Exam General: No acute distress. Some minimal tremor. Mental status: Alert and oriented. Chest: Clear to auscultation anteriorly. Good air movement CV: Normal rate. Regular rhythm. No murmur. Abdomen: Active bowel sounds. Soft. Not distended. Mild tenderness primarily in the bilateral lower quadrants. No guarding. No rebound. Extremities: No lower extremity edema. ASSESSMENT/PLAN Assessment/Plan 1. Intractable vomiting with ileus: Appears to be making some minimal improvement. We'll continue clear liquids and when she is able to tolerate that we'll advance her diet. We'll work on her bowel movements since that is probably contributing to her symptoms. 2. Diabetes mellitus type 2: Stable. Continue current medications 3. Chronic anxiety: Stable. 4. Essential tremor: Stable. Continue current medication 5. Hypertension: Stable 6. History of chronic constipation: She had started Amitiza but she is not able to afford that when we tried that before as an outpatient. We'll switch to lactulose and see if that helps her with her bowel movements which will then probably help with her nausea and vomiting. Problems: COMMENT Lab Laboratory Tests Test 11/28/16 16:59 11/28/16 20:54 11/29/16 04:19 11/29/16 08:03 Glucose (Fingerstick) 177mg/dL (70-99) 112mg/dL (70-99) 130mg/dL (70-99) White Blood Count 5.9x10^3/uL (4.0-11.0) Red Blood Count 3.51x10^6/uL (3.50-5.40) Hemoglobin 10.8g/dL (12.0-15.5) Hematocrit 32.5% (36.0-47.0) Mean Corpuscular Volume 93fL (79-100) Mean Corpuscular Hemoglobin 31pg (25-35) Mean Corpuscular Hemoglobin Concent 33g/dL (31-37) Red Cell Distribution Width 13.2% (11.5-14.5) Platelet Count 203x10^3/uL (140-400) Neutrophils (%) (Auto) 49% (31-73) Lymphocytes (%) (Auto) 41% (24-48) Monocytes (%) (Auto) 7% (0-9) Eosinophils (%) (Auto) 2% (0-3) Basophils (%) (Auto) 1% (0-3) Neutrophils # (Auto) 2.9x10^3uL (1.8-7.7) Lymphocytes # (Auto) 2.4x10^3/uL (1.0-4.8) Monocytes # (Auto) 0.4x10^3/uL (0.0-1.1) Eosinophils # (Auto) 0.1x10^3/uL (0.0-0.7) Basophils # (Auto) 0.0x10^3/uL (0.0-0.2) Sodium Level 144mmol/L (136-145) Potassium Level 3.8mmol/L (3.5-5.1) Chloride Level 108mmol/L (98-107) Carbon Dioxide Level 28mmol/L (21-32) Anion Gap 8 (6-14) Blood Urea Nitrogen 7mg/dL (7-20) Creatinine 0.6mg/dL (0.6-1.0) Estimated GFR (Cockcroft-Gault) 99.4 Glucose Level 136mg/dL (70-99) Calcium Level 8.5mg/dL (8.5-10.1) Test 11/29/16 12:01 Glucose (Fingerstick) 149mg/dL (70-99) DAWNA LUDWIG MD Nov 29, 2016 14:54
[2016-11-29 15:23] VITALS: BP 143/59
[2016-11-29] MEDS: LACTULOSE 20 GM/30 ML SOLUTION. PO SCH (16:45)
[2016-11-29] MEDS: DULOXETINE HCL 30 MG CAPSULE.DR. PO SCH (16:46)
[2016-11-29 19:05] VITALS: BP 163/76
[2016-11-29 23:46] VITALS: BP 131/47
[2016-11-30] MEDS: HYDROCODONE/APAP 5/325MG TABLET. PO PRN (05:04)
[2016-11-30 07:58] VITALS: BP 109/43
[2016-11-30] MEDS: LACTULOSE 20 GM/30 ML SOLUTION. PO SCH ×2 (08:00→16:33)
[2016-11-30] MEDS: INSULIN ASPART 300 UNITS/3 ML INSULN.PEN SQ SCH ×3 (08:00→17:00)
[2016-11-30] MEDS: DULOXETINE HCL 30 MG CAPSULE.DR. PO SCH (08:01)
[2016-11-30] MEDS: ASPIRIN ENTERIC COATED 81 MG TABLET.DR. PO SCH (08:01)
[2016-11-30] MEDS: GABAPENTIN 300 MG CAPSULE. PO SCH ×3 (08:01→21:50)
[2016-11-30] MEDS: METFORMIN 1,000 MG TABLET PO SCH ×2 (08:01→16:33)
[2016-11-30] MEDS: INSULIN DETEMIR 300 UNITS/3 ML INSULN.PEN. SQ SCH ×2 (08:02→21:56)
--- NOTE | 2016-11-30 08:40 | PDOC ---
SUBJECTIVE Subjective Tolerating clears a little bit better. Still some nausea. No emesis. No bowel movement. Abdominal discomfort is improving but still present. Frequently uses suppositories at home to help with her bowel movements. Denies any shortness of breath. Didn't sleep well last night, has lots of things on her mind. OBJECTIVE Vital Signs Vital Signs Date Time Temp Pulse Resp B/P Pulse Ox O2 Delivery O2 Flow Rate FiO2 11/30/16 08:07 Room Air 11/30/16 07:58 97.7 70 16 109/43 98 Room Air 97.7 11/29/16 23:46 98.1 76 16 131/47 96 Room Air 98.1 11/29/16 20:10 Room Air 11/29/16 19:05 100.0 81 16 163/76 97 Room Air 100.0 11/29/16 15:23 97.7 76 16 143/59 98 Room Air 97.7 11/29/16 11:24 98.6 78 16 141/66 97 Room Air 98.6 I & O Intake and Output 11/30/16 07:00 Intake Total 740 ml Balance 740 ml Intake Oral 740 ml # Voids 5 PHYSICAL EXAM Physical Exam General: No acute distress. Some minimal tremor. Mental status: Alert and oriented. Chest: Clear to auscultation anteriorly. Good air movement CV: Normal rate. Regular rhythm. No murmur. Abdomen: Active bowel sounds. Soft. Not distended. Mild tenderness primarily in the bilateral lower quadrants. No guarding. No rebound. Extremities: No lower extremity edema. ASSESSMENT/PLAN Assessment/Plan 1. Intractable vomiting with ileus: Appears to be making some minimal improvement. Try to advance her diet to full clears at lunch and then as tolerated. We'll work on her bowel movements since that is probably contributing to her symptoms. 2. Diabetes mellitus type 2: Stable. Continue current medications 3. Chronic anxiety: Stable. 4. Essential tremor: Stable. Continue current medication 5. Hypertension: Stable 6. History of chronic constipation: She had started Amitiza but she is not able to afford that when we tried that before as an outpatient. We'll switch to lactulose and see if that helps her with her bowel movements which will then probably help with her nausea and vomiting. Try Dulcolax suppository. She frequently uses suppositories at home to help with her constipation. Consider GI evaluation if she is not making improvement. Problems: COMMENT Lab Laboratory Tests Test 11/29/16 12:01 11/29/16 16:51 11/29/16 20:39 11/30/16 07:57 Glucose (Fingerstick) 149mg/dL (70-99) 100mg/dL (70-99) 118mg/dL (70-99) 104mg/dL (70-99) DAWNA LUDWIG MD Nov 30, 2016 08:40
[2016-11-30] MEDS ORDERED: ZOLPIDEM 5 MG TABLET. PO PRN (08:45)
[2016-11-30] MEDS ORDERED: BISACODYL 10 MG SUPP.RECT. PR PRN (08:45)
[2016-11-30] MEDS ORDERED: BISACODYL 10 MG SUPP.RECT. PR ONE (09:15)
[2016-11-30 11:53] VITALS: BP 134/64
[2016-11-30 15:41] VITALS: BP 133/56
[2016-11-30 19:00] VITALS: BP 136/64
[2016-11-30 23:00] VITALS: BP 140/60
[2016-12-01 07:00] VITALS: BP 121/55
--- NOTE | 2016-12-01 07:39 | PDOC ---
SUBJECTIVE Subjective Feeling better overall. Minimal abdominal discomfort mostly in the lower abdomen. No emesis. He had several bowel movements yesterday. She tolerates liquids without any difficulty. She did not like the taste of the full liquid diet. She would like to try and eat regular food. Denies any shortness of breath. OBJECTIVE Vital Signs Vital Signs Date Time Temp Pulse Resp B/P Pulse Ox O2 Delivery O2 Flow Rate FiO2 11/30/16 23:00 98.4 61 20 140/60 97 Room Air 98.4 11/30/16 20:00 Room Air 11/30/16 19:00 98.4 85 19 136/64 97 Room Air 98.4 11/30/16 15:41 98.1 74 16 133/56 97 Room Air 98.1 11/30/16 11:53 97.9 83 16 134/64 98 Room Air 97.9 11/30/16 08:07 Room Air 11/30/16 07:58 97.7 70 16 109/43 98 Room Air 97.7 I & O Intake and Output 12/01/16 06:59 Intake Total 1050 ml Balance 1050 ml Intake Oral 1050 ml # Voids 7 PHYSICAL EXAM Physical Exam General: No acute distress. Some minimal tremor. Mental status: Alert and oriented. Chest: Clear to auscultation. Good air movement CV: Normal rate. Regular rhythm. No murmur. Abdomen: Active bowel sounds. Soft. Not distended. Very minimal and improved tenderness primarily in the bilateral lower quadrants. No guarding. No rebound. Extremities: No lower extremity edema. ASSESSMENT/PLAN Assessment/Plan 1. Intractable vomiting with ileus, likely secondary to chronic constipation: Continues to improve. We'll see how she does with regular food today. If she tolerates regular diet than she could go home later today. If she is intolerant then we'll consider GI evaluation. 2. Diabetes mellitus type 2: Stable. Continue current medications 3. Chronic anxiety: Stable. 4. Essential tremor: Stable. Continue current medication 5. Hypertension: Stable 6. History of chronic constipation: She had started Amitiza but she is not able to afford that when we tried that before as an outpatient. Seems to be doing better with her bowel movements with the change in the bowel regimen. Consider GI evaluation if she is not making improvement. 7. Disposition: Home today if she is able to tolerate a more regular diet. Problems: COMMENT Lab Laboratory Tests Test 11/30/16 07:57 11/30/16 11:18 11/30/16 16:59 11/30/16 20:17 Glucose (Fingerstick) 104mg/dL (70-99) 108mg/dL (70-99) 126mg/dL (70-99) 157mg/dL (70-99) DAWNA LUDWIG MD Dec 01, 2016 07:39
[2016-12-01] MEDS ORDERED: INSU100I27 SQ (07:46)
[2016-12-01] MEDS ORDERED: LACT20SO PO (07:46)
[2016-12-01] MEDS ORDERED: DULO30CA2 PO (07:46)
[2016-12-01] MEDS: INSULIN ASPART 300 UNITS/3 ML INSULN.PEN SQ SCH ×3 (08:00→17:00)
[2016-12-01] MEDS: METFORMIN 1,000 MG TABLET PO SCH ×2 (08:00→17:00)
[2016-12-01] MEDS: INSULIN DETEMIR 300 UNITS/3 ML INSULN.PEN. SQ SCH (08:50)
[2016-12-01] MEDS: DULOXETINE HCL 30 MG CAPSULE.DR. PO SCH (08:51)
[2016-12-01] MEDS: ASPIRIN ENTERIC COATED 81 MG TABLET.DR. PO SCH (08:51)
[2016-12-01] MEDS: GABAPENTIN 300 MG CAPSULE. PO SCH ×2 (08:51→14:49)
[2016-12-01] MEDS: LACTULOSE 20 GM/30 ML SOLUTION. PO SCH ×2 (08:51→14:49)
[2016-12-01 11:00] VITALS: BP 136/65
--- NOTE | 2016-12-01 14:11 | DISCH ---
DISCHARGE INSTRUCTIONS Condition on Discharge Condition on Discharge: Stable Activity After Discharge Activity Instructions for Disc: Activity as tolerated Diet after Discharge Diet after Discharge: Diabetic No Calorie Level Checks after Discharge Checks after discharge: Check blood sugar, ac/hs Contacting the DR. after DC Call your doctor for: If your condition worsens Follow-Up Follow up with: Dr. Ludwig in 1-2 weeks DAWNA LUDWIG MD Dec 01, 2016 14:11
--- NOTE | 2016-12-01 14:19 | PDOC ---
Provider Note Provider Note See discharge summary dictation #[id number] DAWNA LUDWIG MD Dec 01, 2016 14:19
[2016-12-01 15:00] VITALS: BP 147/69
--- NOTE | 2016-12-02 00:02 | DS ---
DATE OF DISCHARGE: 12/01/2016 ATTENDING PHYSICIAN: Dawna Ludwig M.D. CHIEF COMPLAINT: Nausea and vomiting. HISTORY OF PRESENT ILLNESS: The patient is a 70-year-old female with a history of chronic constipation, who had worsening constipation over the week prior to admission. Approximately 2 days prior to admission, the constipation was so bad, she used a bottle of magnesium citrate. She then had several bowel movements. After that, she began to have emesis all night and the day of admission, prompting her evaluation in the Emergency Room. The stools were hard initially and she did have blood on the tissue paper initially, there was no hematemesis. She was also having diffuse abdominal pain as well as feeling lightheaded with standing. HOSPITAL COURSE: The patient was admitted. She was given IV fluids and she had improvement in her symptoms. She was placed on clear liquids initially. Admission x-ray showed a mild ileus. She did have some improvement. Repeat x-ray showed nonspecific bowel gas pattern. She was advanced on her diet. She was also started on lactulose and given Dulcolax suppository in order to encourage bowel movement. She did have several bowel movements prior to discharge that did seem to improve her symptoms. Her diet continued to be advanced and she was tolerating a regular type diet prior to discharge. At the time of discharge, the patient was tolerating a regular diet. She was not having any shortness of breath. She had had bowel movements. Her abdominal pain was better. She was afebrile. PHYSICAL EXAMINATION: VITAL SIGNS: Stable. GENERAL: She was alert, in no distress. CHEST: Clear to auscultation bilaterally. HEART: Had a regular rate and rhythm without murmur. ABDOMEN: Soft and nondistended. There is no guarding or rebound. EXTREMITIES: Without edema. LABORATORY DATA: At the time of discharge, WBC 5.9, hemoglobin 10.8, hematocrit 32.5, platelets 203. UA was negative for nitrite or leukocyte esterase. Blood sugars were well controlled. Sodium 144, potassium 3.8, BUN 7, creatinine 0.6. DISCHARGE DIAGNOSES: 1. Intractable vomiting with ileus likely secondary to chronic constipation. 2. Diabetes mellitus type 2. 3. Chronic anxiety. 4. Essential tremor. 5. Hypertension. 6. History of chronic constipation. DISCHARGE DIET: Diabetic diet. Fluids are encouraged. MEDICATIONS: Medications at the time of discharge include Cymbalta 60 mg p.o. daily, Levemir 30 units subcutaneously b.i.d., lactulose 20 grams per 30 mL 15-30 mL p.o. b.i.d. p.r.n. constipation, alprazolam 0.5 mg p.o. t.i.d., alprazolam 1 mg p.o. b.i.d. p.r.n., aspirin 81 mg p.o. daily, Lipitor 40 mg p.o. daily, Bentyl 10 mg p.o. t.i.d. p.r.n., gabapentin 600 mg p.o. t.i.d., and daily p.r.n., metformin 1000 mg p.o. b.i.d. FOLLOWUP: The patient is to follow up with Dr. Ludwig in approximately 1-2 weeks. DAWNA LUDWIG MD DR: ROSALINO/zina JOB#: [id number] / [id number]
== END 2016-12-01 18:21 | disposition home or self-care (01) | DRG 392 ==
LOC: ER 16:20 → 6 SOUTH 18:27
PROVIDERS: ADMIT Family Medicine; ATTEND Family Medicine
DX: K59.09 Other constipation (principal); K56.7 Ileus, unspecified; G25.0 Essential tremor; E78.5 Hyperlipidemia, unspecified; M85.80 Other specified disorders of bone density and structure, unspecified site; E11.40 Type 2 diabetes mellitus with diabetic neuropathy, unspecified; E55.9 Vitamin D deficiency, unspecified; M19.90 Unspecified osteoarthritis, unspecified site; F41.9 Anxiety disorder, unspecified; I10 Essential (primary) hypertension; K21.9 Gastro-esophageal reflux disease without esophagitis; Z82.49 Family history of ischemic heart disease and other diseases of the circulatory system; Z82.5 Family history of asthma and other chronic lower respiratory diseases; Z86.718 Personal history of other venous thrombosis and embolism; Z87.891 Personal history of nicotine dependence; Z90.710 Acquired absence of both cervix and uterus; Z79.899 Other long term (current) drug therapy
CPT/HCPCS: 36415; 74020; 74022; 80048; 80053; 81001; 82947; 83605; 83690; 85027; 87040; 93005; 96374; 96375; 96376; J1815; J2405; J2550; J7030; S0028; 97110; 97116; 99285-25

== ENCOUNTER 2017-03-05 11:57 | Emergency (ER) | payer MEDICARE ==
[~2017-03-05] VITALS: Ht 154.9 cm; Wt 63.5 kg
[~2017-03-05 11:57] MED LIST changes: +ALPR0.5T6 PO; +ALPR1TAB6 PO; +ASPI-482 PO; +ATOR40TA59 PO; +DICY10CA3 PO; +DULO30CA2 PO; +DULO60CA6 PO; +GABA600T2 PO; +INSU100I27 SQ; +LACT20SO PO; +METF-620 PO; +VENL37.57 PO; +insulin
--- NOTE | 2017-03-05 12:45 | PHYS DOC ---
Past Medical History Past Medical History: Arthritis, Diabetes-Type II, Other Additional Past Medical Histor: neuropathy, tremors Past Surgical History: Other Additional Past Surgical Histo: stomach, blood clot on breast, hemorrhoids, stomach stent x 2 Alcohol Use: None Drug Use: None Adult General Chief Complaint Chief Complaint: BLOOD SUGAR PROBLEM HPI HPI Patient is a 71 year old female brought to the ED by her daughter with the complaint of low blood sugar. The patient was doing fine yesterday, she went to eat, she was taking her insulin as prescribed. She was doing some ironing last evening when she began to feel shaky. She checked her blood sugar and it was 45. She didn't have any juice so she drank some soda pop. Then she drank some juice and she had a meal. This went on throughout the evening, her blood sugar would go up and then back down. She had some nausea and vomiting with this as well. This morning, so far she has had a banana, drink some juice, and had a bowl of cereal with a banana also. Now she feels better but she does have a headache. She has had no nausea or vomiting this morning. Patient takes metformin 1000 twice a day and she is also prescribed Lantus 74 units at bedtime and NovoLog 22 units with meals. Talking to the patient, it is not clear to me that she takes her insulin as prescribed. She checks her blood sugar and then decides whether to take her insulin including her Lantus. If she believes that her sugar is not very high at bedtime, she does not take her Lantus insulin. Patient was seen recently for possible operation for a bunion and was told her hemoglobin A1c was over 8, some changes were made to her regimen and her doctor talked to her about being careful about her carbs. PCP Dr. Dawna Ludwig Review of Systems Review of Systems Constitutional: Denies fever or chills and has had some generalized shaking when her sugar was low Eyes: Denies change in visual acuity, redness, or eye pain [] HENT: Denies nasal congestion or sore throat [] Respiratory: Denies cough or shortness of breath [] Cardiovascular: Denies chest pain GI: See and vomiting last night but none today : Denies dysuria or hematuria [] Musculoskeletal: Denies back pain or joint pain [] Integument: Denies rash or skin lesions [] Neurologic: She had a headache earlier but does not now Allergies Allergies Allergies Coded Allergies Type Severity Reaction Last Updated Verified No Known Drug Allergies 02/08/15 No Physical Exam Physical Exam Constitutional: Well developed, well nourished, no acute distress, non-toxic appearance. Alert, mentating normally. HENT: Normocephalic, atraumatic, bilateral external ears normal, nose normal. [ ] Eyes: conjunctiva normal, no discharge. [] Neck: Normal range of motion, no stridor. [] Cardiovascular:Heart rate regular rhythm, no murmur [] Lungs & Thorax: Bilateral breath sounds clear to auscultation [] Abdomen: Bowel sounds normal, soft, no tenderness, no masses, no pulsatile masses. [] Skin: Warm, dry, no erythema, no rash. [] Extremities: No tenderness, no cyanosis, no clubbing, ROM intact, no edema. [] Neurologic: Alert and oriented X 3, normal motor function, normal sensory function, no focal deficits noted. [] Current Patient Data Vital Signs Vital Signs Date Time Temp Pulse Resp B/P (MAP) Pulse Ox O2 Delivery O2 Flow Rate FiO2 03/05/17 16:53 80 20 145/65 (91) 98 Room Air 03/05/17 12:14 98.4 98.4 Lab Values Laboratory Tests Test 03/05/17 12:18 03/05/17 12:50 03/05/17 15:11 03/05/17 16:55 Glucose (Fingerstick) 191 mg/dL (70-99) H 82 mg/dL (70-99) 97 mg/dL (70-99) White Blood Count 6.1 x10^3/uL (4.0-11.0) Red Blood Count 4.16 x10^6/uL (3.50-5.40) Hemoglobin 12.5 g/dL (12.0-15.5) Hematocrit 37.7 % (36.0-47.0) Mean Corpuscular Volume 91 fL (79-100) Mean Corpuscular Hemoglobin 30 pg (25-35) Mean Corpuscular Hemoglobin Concent 33 g/dL (31-37) Red Cell Distribution Width 13.8 % (11.5-14.5) Platelet Count 235 x10^3/uL (140-400) Neutrophils (%) (Auto) 67 % (31-73) Lymphocytes (%) (Auto) 24 % (24-48) Monocytes (%) (Auto) 7 % (0-9) Eosinophils (%) (Auto) 1 % (0-3) Basophils (%) (Auto) 1 % (0-3) Neutrophils # (Auto) 4.1 x10^3uL (1.8-7.7) Lymphocytes # (Auto) 1.5 x10^3/uL (1.0-4.8) Monocytes # (Auto) 0.5 x10^3/uL (0.0-1.1) Eosinophils # (Auto) 0.1 x10^3/uL (0.0-0.7) Basophils # (Auto) 0.0 x10^3/uL (0.0-0.2) Sodium Level 141 mmol/L (136-145) Potassium Level 4.6 mmol/L (3.5-5.1) Chloride Level 101 mmol/L (98-107) Carbon Dioxide Level 33 mmol/L (21-32) H Anion Gap 7 (6-14) Blood Urea Nitrogen 10 mg/dL (7-20) Creatinine 0.6 mg/dL (0.6-1.0) Estimated GFR (Cockcroft-Gault) 99.1 BUN/Creatinine Ratio 17 (6-20) Glucose Level 150 mg/dL (70-99) H Calcium Level 9.6 mg/dL (8.5-10.1) Total Bilirubin 0.4 mg/dL (0.2-1.0) Aspartate Amino Transferase (AST) 18 U/L (15-37) Alanine Aminotransferase (ALT) 23 U/L (14-59) Alkaline Phosphatase 62 U/L (46-116) Total Protein 8.2 g/dL (6.4-8.2) Albumin 4.1 g/dL (3.4-5.0) Albumin/Globulin Ratio 1.0 (1.0-1.7) Laboratory Tests 03/05/17 12:50 Laboratory Tests 03/05/17 12:50 EKG EKG 12-lead EKG read by me. Sinus rhythm. Heart rate 84. There are no acute ST or T wave changes indicative of ischemia or infarction. No STEMI. 1348 [] Radiology/Procedures Radiology/Procedures [] Course & Med Decision Making Course & Med Decision Making Pertinent Labs and Imaging studies reviewed. (See chart for details) 71-year-old female who takes insulin and metformin for diabetes, presents after having several episodes of hypoglycemia last night. The cause for her hypoglycemia is not immediately apparent. She did have nausea and vomiting but that occurred after she became hypoglycemic. After lengthy discussion with the patient and her family members, I'm concerned that she does not take her insulin like it's prescribed, and because of this, the amount of insulin prescribed by Dr. Ludwig may be too much, because he may be under the impression that she is taking her insulin and therefore increased her insulin when she is in fact not taking it like she is supposed to. I discussed this at length with the patient and her family. We discussed that she should not change her insulin dose depending on her Accu-Chek and less she is specifically told to do so. I discussed the case with Dr. Ayala, bring for Dr. Ludwig. She will leave him a message. For now, I will decrease the patient's regular insulin dosage to hopefully avoid further hypoglycemic episodes. I strongly urge the patient to get back in and talked to Dr. Ludwig next week, track her blood sugars to take them with her, and ask about seeing a prosthodontist/educator. [] Dragon Disclaimer Dragon Disclaimer This electronic medical record was generated, in whole or in part, using a voice recognition dictation system. Departure Departure Impression: Primary Impression: Hypoglycemia Disposition: 01 HOME, SELF-CARE Condition: STABLE Referrals: DAWNA LUDWIG MD (PCP) Patient Instructions: 1800 Calorie Diet for Diabetes Meal Planning, Diabetes Meal Planning Guide, Type 2 Diabetes Mellitus, Adult Additional Instructions: As we discussed, I am concerned that the way you are taking your insulin may not be the same way that Dr. Ludwig thinks you are taking your insulin. Discuss with Dr. Ludwig how he wants you to decide whether to take your insulin or not, and if he wants you to use a sliding scale or not. Today, Dr. Ludwig is not in the office. I discussed your case with his partner , Dr. Ayala. She and I agreed that for now, we will decrease your NovoLog dose so you do not get too low. Until you see Dr. Ludwig, follow the following insulin regimen: Every night at bedtime, take Lantus 74 units. This is a long-acting insulin and acts over 24 hours, it will not drop your blood sugar quickly, take it no matter what your blood sugar is. With every meal, either right before or right after you eat, take 10 units of NovoLog. This is a decrease from 22 units because we are being more careful to avoid dropping your sugar too much. Check and record your blood sugar: fasting in the morning, before every meal, and at bedtime. Record this and take the record to Dr. Ludwig when you go. Call for appointment for follow-up with Dr. Ludwig and have a family member go with you so you all understand his recommendation for insulin dosage. I recommend that you visit with a prosthodontist/educator. Discuss this with Dr. Ludwig. He can refer you. If you feel symptoms of low blood sugar, check your blood sugar, and first drink juice or soda to get your sugar up, then heat a healthy meals such as a sandwich or bowl of cereal. For the short-term, a low blood sugar is more dangerous than a high blood sugar. If you are running a bit high until we get this straightened out, that will be safer than dropping too low. DOC WHALEY MD Mar 05, 2017 12:45
[2017-03-05 13:10] LABS: BASO % 1 % (0-3); EOS % 1 % (0-3); HEMATOCRIT 37.7 % (36.0-47.0); HEMOGLOBIN 12.5 g/dL (12.0-15.5); LYMPH # 1.5 x10^3/uL (1.0-4.8); LYMPH % 24 % (24-48); MEAN CORPUSCULAR HEMOGLOBIN 30 pg (25-35); MEAN CORPUSCULAR HGB CONC 33 g/dL (31-37); MEAN CORPUSCULAR VOLUME 91 fL (79-100); MONO % 7 % (0-9); NEUT % 67 % (31-73); PLATELET COUNT 235 x10^3/uL (140-400); RED BLOOD COUNT 4.16 x10^6/uL (3.50-5.40); RED CELL DISTRIBUTION WIDTH 13.8 % (11.5-14.5); WHITE BLOOD COUNT 6.1 x10^3/uL (4.0-11.0)
[2017-03-05 13:12] LABS: CALCIUM 9.6 mg/dL (8.5-10.1); CREATININE 0.6 mg/dL (0.6-1.0); GFR 99.1; POTASSIUM 4.6 mmol/L (3.5-5.1)
[2017-03-05 13:19] LABS: ALBUMIN 4.1 g/dL (3.4-5.0); TOTAL BILIRUBIN 0.4 mg/dL (0.2-1.0); TOTAL PROTEIN 8.2 g/dL (6.4-8.2)
--- NOTE | 2017-03-05 14:43 | EKG ---
[facility] [address] [place] [address] Test Date: 2017-03-05 Test Time: 13:48:35 Pat Name: FRANCIA YANES Department: Room: Gender: F [employer]: : 1945 Requested By: DOC WHALEY Order Number: [id number] Reading MD: Measurements Intervals [place] Rate: 84 P: 47 NM: 142 QRS: 11 QRSD: 74 T: 37 QT: 350 QTc: 417 Interpretive Statements SINUS RHYTHM RI6.01 Unconfirmed report No previous ECG available for comparison
[2017-03-05 16:53] VITALS: BP 145/65
== END 2017-03-05 16:57 | disposition home or self-care (01) ==
LOC: ER 11:57
DX: E11.649 Type 2 diabetes mellitus with hypoglycemia without coma (principal); M19.90 Unspecified osteoarthritis, unspecified site; E11.40 Type 2 diabetes mellitus with diabetic neuropathy, unspecified; Z79.4 Long term (current) use of insulin
CPT/HCPCS: 36415; 80053; 82962; 85027; 93005; 99285-25

== ENCOUNTER 2017-06-04 21:29 | Emergency (ER) | payer MEDICARE ==
[~2017-06-04] VITALS: Ht 162.6 cm; Wt 54.4 kg
[2017-06-04 21:54] LABS: BILIRUBIN,URINE NEGATIVE (NEG); GLUCOSE,URINE 250 mg/dL (NEG); NITRITE,URINE NEGATIVE (NEG); PROTEIN,URINE NEGATIVE (NEG-TRACE); UROBILINOGEN,URINE 0.2 mg/dL (0.2 mg/dL)
[2017-06-04 21:59] LABS: BACTERIA,URINE FEW /HPF (0-FEW); RBC,URINE OCC /HPF (0-2); SQUAMOUS EPITHELIAL CELL,UR FEW /LPF
[2017-06-04 22:27] LABS: BASO # 0.1 x10^3/uL (0.0-0.2); BASO % 1 % (0-3); EOS % 3 % (0-3); HEMOGLOBIN 12.3 g/dL (12.0-15.5); LYMPH # 2.6 x10^3/uL (1.0-4.8); LYMPH % 40 % (24-48); MEAN CORPUSCULAR HEMOGLOBIN 30 pg (25-35); MEAN CORPUSCULAR HGB CONC 33 g/dL (31-37); MEAN CORPUSCULAR VOLUME 92 fL (79-100); MONO % 9 % (0-9); NEUT % 47 % (31-73); PLATELET COUNT 192 x10^3/uL (140-400); RED BLOOD COUNT 4.04 x10^6/uL (3.50-5.40); RED CELL DISTRIBUTION WIDTH 13.3 % (11.5-14.5); WHITE BLOOD COUNT 6.5 x10^3/uL (4.0-11.0)
[2017-06-04] MEDS ORDERED: IOHEXOL 300 MG/ML 75 ML VIAL IV ONE (22:30)
[2017-06-04] MEDS ORDERED: CONTRAST GIVEN MC PRN (22:30)
[2017-06-04 22:36] LABS: CALCIUM 9.3 mg/dL (8.5-10.1); CREATININE 0.8 mg/dL (0.6-1.0); GFR 71.1; POTASSIUM 4.4 mmol/L (3.5-5.1)
[2017-06-04 22:42] LABS: ALBUMIN 3.9 g/dL (3.4-5.0); TOTAL BILIRUBIN 0.3 mg/dL (0.2-1.0); TOTAL PROTEIN 7.8 g/dL (6.4-8.2)
--- NOTE | 2017-06-04 23:29 | RAD ---
CT SCAN OF THE ABDOMEN AND PELVIS WITH IV CONTRAST. History: Abdominal pain with lower abdominal pressure and nausea vomiting diarrhea and incontinence Comparison:May 18, 2012. Procedure: Contiguous axial images of the abdomen and pelvis were performed after the administration of 75 cc of Omni 300 IV contrast and without oral contrast. CT Abdomen with contrast: Findings: Liver: Unremarkable Spleen: Unremarkable Pancreas: Unremarkable Adrenal Glands: Unremarkable Kidneys: Prominence the renal pelvises was seen previously and is likely extrarenal pelvises There is no mass or lymphadenopathy. There is no free air. There is no free fluid. There is air and stool scattered throughout the colon. CT Pelvis with Contrast: Findings: The urinary bladder appears normal. There is no free fluid. There is no lymphadenopathy. The appendix is not seen. Impression: Constipation versus mild colonic ileus. RS Compliance Statement: One or more of the following individualized dose reduction techniques were utilized for this examination: 1. Automated exposure control 2. Adjustment of the mA and/or kV according to patient size 3. Use of iterative reconstruction technique Electronically signed by: Toby La III, MD (06/04/2017 11:26 PM) [facility] [place]
[2017-06-05] VITALS: BP 132/63
--- NOTE | 2017-06-05 00:03 | PHYS DOC ---
Past Medical History Past Medical History: Arthritis, Diabetes-Type II, Other Additional Past Medical Histor: neuropathy, tremors Past Surgical History: Other Additional Past Surgical Histo: stomach, blood clot on breast, hemorrhoids, stomach stent x 2 Alcohol Use: None Drug Use: None Adult General Chief Complaint Chief Complaint: ABDOMINAL PAIN HPI HPI Patient is a 71 year old female who presents with abdominal pain & urinary incontinence. The patient reports 1 week history of suprapubic discomfort associated with urinary frequency & incontinence. She has started wearing pads which is unusual for her. She denies fevers/chills, nausea, vomiting, diarrhea , hematuria, lower extremity numbness/weakness, saddle anesthesia. She takes an unknown medication for chronic constipation but states symptoms worse than usual. has chronic back pain no different or more severe tonight than usual. She had 4 vaginal deliveries in the past, has since had hysterectomy. Her PCP is Dr. Ludwig. Review of Systems Review of Systems Constitutional: Denies fever or chills HENT: Denies nasal congestion or sore throat Respiratory: Denies cough or shortness of breath Cardiovascular: Denies chest pain or edema GI: Reports abdominal pain, denies nausea, vomiting, bloody stools or diarrhea : Denies dysuria or hematuria. Reports urinary incontinence Musculoskeletal: Denies back pain or joint pain Integument: Denies rash or skin lesions Neurologic: Denies headache, focal weakness or sensory changes Current Medications Current Medications Current Medications Medications (Trade) Dose Ordered Sig/Rafita Start Time Stop Time Status Last Admin Dose Admin Info (Do NOT chart on this entry -- for MONITORING) 1 each PRN DAILY PRN 06/04/17 22:30 06/05/17 00:16 DC Iohexol (Omnipaque 300 Mg/ml) 75 ml 1X ONCE 06/04/17 22:30 06/04/17 22:31 DC 06/04/17 22:30 75 ML Allergies Allergies Allergies Coded Allergies Type Severity Reaction Last Updated Verified No Known Drug Allergies 02/08/15 No Physical Exam Physical Exam Constitutional: Well developed, well nourished, no acute distress, non-toxic appearance. HENT: Normocephalic, atraumatic, bilateral external ears normal, oropharynx moist, nose normal. Eyes: conjunctiva normal, no discharge. Neck: supple, no stridor. Cardiovascular: RRR, no murmurs, no edema. Lungs & Thorax: LCTAB, no wheezing, no respiratory distress. Abdomen: soft, suprapubic tenderness without rebound/guarding, no masses or pulsatile masses, nondistended. Skin: Warm, dry, no erythema, no rash. Back: No CVA tenderness. Extremities: No tenderness, no edema. Neurologic: Alert and oriented X 3, symmetric strength/sensation to lower extremities, no focal deficits noted. Psychologic: Affect normal, judgement normal, mood normal. Current Patient Data Vital Signs Vital Signs Date Time Temp Pulse Resp B/P (MAP) Pulse Ox O2 Delivery O2 Flow Rate FiO2 06/05/17 00:00 70 18 132/63 (86) 100 Room Air 06/04/17 21:38 98.4 98.4 Lab Values Laboratory Tests Test 06/04/17 21:31 06/04/17 21:52 06/04/17 22:20 Urine Collection Type Unknown Urine Color Yellow Urine Clarity Clear Urine pH 7.0 Urine Specific [place] 1.015 Urine Protein Negative mg/dL (NEG-TRACE) Urine Glucose (UA) 250 mg/dL (NEG) Urine Ketones (Stick) Negative mg/dL (NEG) Urine Blood Negative (NEG) Urine Nitrite Negative (NEG) Urine Bilirubin Negative (NEG) Urine Urobilinogen Dipstick 0.2 mg/dL (0.2 mg/dL) Urine Leukocyte Esterase Negative (NEG) Urine RBC Occ /HPF (0-2) Urine WBC 1-4 /HPF (0-4) Urine Squamous Epithelial Cells Few /LPF Urine Amorphous Sediment Present /HPF Urine Bacteria Few /HPF (0-FEW) Glucose (Fingerstick) 221 mg/dL (70-99) H White Blood Count 6.5 x10^3/uL (4.0-11.0) Red Blood Count 4.04 x10^6/uL (3.50-5.40) Hemoglobin 12.3 g/dL (12.0-15.5) Hematocrit 37.0 % (36.0-47.0) Mean Corpuscular Volume 92 fL (79-100) Mean Corpuscular Hemoglobin 30 pg (25-35) Mean Corpuscular Hemoglobin Concent 33 g/dL (31-37) Red Cell Distribution Width 13.3 % (11.5-14.5) Platelet Count 192 x10^3/uL (140-400) Neutrophils (%) (Auto) 47 % (31-73) Lymphocytes (%) (Auto) 40 % (24-48) Monocytes (%) (Auto) 9 % (0-9) Eosinophils (%) (Auto) 3 % (0-3) Basophils (%) (Auto) 1 % (0-3) Neutrophils # (Auto) 3.1 x10^3uL (1.8-7.7) Lymphocytes # (Auto) 2.6 x10^3/uL (1.0-4.8) Monocytes # (Auto) 0.6 x10^3/uL (0.0-1.1) Eosinophils # (Auto) 0.2 x10^3/uL (0.0-0.7) Basophils # (Auto) 0.1 x10^3/uL (0.0-0.2) Sodium Level 135 mmol/L (136-145) L Potassium Level 4.4 mmol/L (3.5-5.1) Chloride Level 99 mmol/L (98-107) Carbon Dioxide Level 30 mmol/L (21-32) Anion Gap 6 (6-14) Blood Urea Nitrogen 20 mg/dL (7-20) Creatinine 0.8 mg/dL (0.6-1.0) Estimated GFR (Cockcroft-Gault) 71.1 BUN/Creatinine Ratio 25 (6-20) H Glucose Level 222 mg/dL (70-99) H Calcium Level 9.3 mg/dL (8.5-10.1) Total Bilirubin 0.3 mg/dL (0.2-1.0) Aspartate Amino Transferase (AST) 16 U/L (15-37) Alanine Aminotransferase (ALT) 24 U/L (14-59) Alkaline Phosphatase 72 U/L (46-116) Total Protein 7.8 g/dL (6.4-8.2) Albumin 3.9 g/dL (3.4-5.0) Albumin/Globulin Ratio 1.0 (1.0-1.7) Lipase 126 U/L (73-393) Laboratory Tests 06/04/17 22:20 Laboratory Tests 06/04/17 22:20 EKG EKG [] Radiology/Procedures Radiology/Procedures PROCEDURE: CT ABD PELV W/ IV CONTRST ONLY CT SCAN OF THE ABDOMEN AND PELVIS WITH IV CONTRAST. History: Abdominal pain with lower abdominal pressure and nausea vomiting diarrhea and incontinence Comparison:May 18, 2012. Procedure: Contiguous axial images of the abdomen and pelvis were performed after the administration of 75 cc of Omni 300 IV contrast and without oral contrast. CT Abdomen with contrast: Findings: Liver: Unremarkable Spleen: Unremarkable Pancreas: Unremarkable Adrenal Glands: Unremarkable Kidneys: Prominence the renal pelvises was seen previously and is likely extrarenal pelvises There is no mass or lymphadenopathy. There is no free air. There is no free fluid. There is air and stool scattered throughout the colon. CT Pelvis with Contrast: Findings: The urinary bladder appears normal. There is no free fluid. There is no lymphadenopathy. The appendix is not seen. Impression: Constipation versus mild colonic ileus. RS Compliance Statement: One or more of the following individualized dose reduction techniques were utilized for this examination: 1. Automated exposure control 2. Adjustment of the mA and/or kV according to patient size 3. Use of iterative reconstruction technique Electronically signed by: Donna Bhardwaj III, MD (06/04/2017 11:26 PM) [facility] [place] DICTATED and SIGNED BY: DONNA BHARDWAJ III, MD DATE: 06/04/17 2322[] Course & Med Decision Making Course & Med Decision Making Pertinent Labs and Imaging studies reviewed. (See chart for details) The patient presents with urinary incontinence & abdominal pain. UA negative for infection. Do not suspect cauda equina syndrome. Obtained labs & CT. She was found to have hyperglycemia without DKA as well as constipation on CT. Recommend continue bowel regimen, use miralax if symptoms worsen, continue frequent accuchecks & diabetic meds. Follow up with Dr. Ludwig in 2-3 days, likely will need referral for urogynecology. Can also schedule an appointment with Dr. Alva but anticipate subspecialist may be more helpful if her symptoms continue. Come back for high fever, severe pain, uncontrolled vomiting, numbness or weakness in arms or legs, saddle anesthesia, any otherwise worsening condition. Discharged home in stable condition. [] Dragon Disclaimer Dragon Disclaimer This electronic medical record was generated, in whole or in part, using a voice recognition dictation system. Departure Departure Impression: Primary Impression: Urinary incontinence Disposition: HOME, SELF-CARE Condition: STABLE Referrals: DAWNA LUDWIG MD (PCP) Patient Instructions: Urinary Incontinence-Brief Additional Instructions: You were seen in the emergency department today for urinary incontinence. Your tests did not show a serious cause of your symptoms. You had elevated blood glucose in the 200s so it is important to take diabetic medications as prescribed & check your blood glucose as instructed by your doctor. You had constipation on your CT scan so please continue taking medication. You can use miralax as needed if you have worsening constipation. Follow up with primary care doctor next week; if symptoms continue you will likely need to see a urology/gynecology specialist. Come back for high fever, severe abdominal pain or back pain, uncontrolled vomiting, numbness or weakness in arms or legs, numbness in your groin, otherwise worsening condition. RIKA RAMIREZ MD Jun 05, 2017 00:03
== END 2017-06-05 00:16 | disposition home or self-care (01) ==
LOC: ER 21:29
DX: R32 Unspecified urinary incontinence (principal); R10.30 Lower abdominal pain, unspecified; R35.0 Frequency of micturition; E11.65 Type 2 diabetes mellitus with hyperglycemia; G89.29 Other chronic pain
CPT/HCPCS: 36415; 74177; 80053; 81001; 82962; 83690; 85025; 99285; Q9967

== ENCOUNTER 2018-05-14 17:33 | Emergency (ER) | payer MEDICARE, OTHER ==
[~2018-05-14] VITALS: Ht 162.6 cm; Wt 63.5 kg
[~2018-05-14 17:33] MED LIST changes: -METF-620 PO; +METF10007 PO
--- NOTE | 2018-05-14 18:10 | EKG ---
[facility] [address] [place] [address] Test Date: 2018-05-14 Test Time: 18:06:34 Pat Name: FRANCIA YANES Department: Room: Gender: F Guide Escort: DANNIELLE : 1945 Requested By: PAULIE GARRIDO Order Number: [id number] Reading MD: Naga Sanders Measurements Intervals [place] Rate: 104 P: 59 GA: 120 QRS: 16 QRSD: 74 T: 48 QT: 324 QTc: 432 Interpretive Statements SINUS TACHYCARDIA NON SPECIFIC T ABNORMALITY BORDERLINE ECG Electronically Signed On 05-16-2018 11:18:30 CDT by Naga Sanders
[2018-05-14 19:06] LABS: BASO # 0.1 x10^3/uL (0.0-0.2); BASO % 1 % (0-3); EOS % 0 % (0-3); HEMATOCRIT 37.9 % (36.0-47.0); HEMOGLOBIN 12.9 g/dL (12.0-15.5); LYMPH % 17 % (24-48); MEAN CORPUSCULAR HEMOGLOBIN 31 pg (25-35); MEAN CORPUSCULAR HGB CONC 34 g/dL (31-37); MEAN CORPUSCULAR VOLUME 91 fL (79-100); MONO # 0.8 x10^3/uL (0.0-1.1); MONO % 7 % (0-9); NEUT # 8.9 x10^3uL (1.8-7.7); NEUT % 76 % (31-73); PLATELET COUNT 211 x10^3/uL (140-400); RED BLOOD COUNT 4.16 x10^6/uL (3.50-5.40); RED CELL DISTRIBUTION WIDTH 13.6 % (11.5-14.5); WHITE BLOOD COUNT 11.8 x10^3/uL (4.0-11.0)
[2018-05-14 19:11] LABS: BILIRUBIN,URINE NEGATIVE (NEG); CLARITY,URINE CLEAR; COLOR,URINE YELLOW; NITRITE,URINE NEGATIVE (NEG); PROTEIN,URINE NEGATIVE (NEG-TRACE); UROBILINOGEN,URINE 0.2 mg/dL (0.2 mg/dL)
[2018-05-14 19:16] LABS: CALCIUM 9.2 mg/dL (8.5-10.1); CREATININE 0.9 mg/dL (0.6-1.0); GFR 61.9
[2018-05-14 19:17] LABS: BACTERIA,URINE 0 /HPF (0-FEW); RBC,URINE 0 /HPF (0-2); SQUAMOUS EPITHELIAL CELL,UR FEW /LPF
[2018-05-14 19:22] LABS: ALBUMIN/GLOBULIN RATIO 1.1 (1.0-1.7); TOTAL BILIRUBIN 0.2 mg/dL (0.2-1.0); TOTAL PROTEIN 7.7 g/dL (6.4-8.2)
[2018-05-14 21:01] VITALS: BP 108/54
[2018-05-14] MEDS ORDERED: BLOO-1207 MC (21:11)
[2018-05-14] MEDS ORDERED: SULF1TAB24 PO (21:13)
--- NOTE | 2018-05-14 21:14 | PHYS DOC ---
Past Medical History Past Medical History: Diabetes-Type II Additional Past Medical Histor: neuropathy, tremors Past Surgical History: No Surgical History Additional Past Surgical Histo: stomach, blood clot on breast, hemorrhoids, stomach stent x 2 Alcohol Use: None Drug Use: None Adult General Chief Complaint Chief Complaint: HYPOGLYCEMIA HPI HPI Patient is a 72 year old female who presents with hypoglycemia. The patient states that she was cooking this morning when she completely zoned out. Her smoke detector went off and neighbors came down and called 911. When the fire department got there she was found to have an extremely low blood sugar. The patient ate and refused to go to the hospital. She states that her blood sugars have been running in the 300s recently. She later took 30 units of Humalog and began to fix lunch. She states that she got very shaky and then had the exact same incident happen. This time she did allow herself to be transported via EMS. Her blood sugar in the ambulance was 79. When she arrived at the emergency department she was still very shaky. I explained to the patient that if her blood sugars have been in the 300s at that 79 would feel extremely low to her and caused those symptoms. She states that she is currently out of her diabetic test strips and she was unable to calculate what her sliding scale should have been for her Humalog. The 30 units was a guess as to what her blood sugars have been running. Review of Systems Review of Systems Constitutional: Denies fever or chills [] Eyes: Denies change in visual acuity, redness, or eye pain [] HENT: Denies nasal congestion or sore throat [] Respiratory: Denies cough or shortness of breath [] Cardiovascular: No additional information not addressed in HPI [] GI: Denies abdominal pain, nausea, vomiting, bloody stools or diarrhea [] : Denies dysuria or hematuria [] Musculoskeletal: Denies back pain or joint pain [] Integument: Denies rash or skin lesions [] Neurologic: Denies headache, focal weakness or sensory changes [] Endocrine: Denies polyuria or polydipsia [] All other systems were reviewed and found to be within normal limits, except as documented in this note. Allergies Allergies Allergies Coded Allergies Type Severity Reaction Last Updated Verified No Known Drug Allergies 02/08/15 No Physical Exam Physical Exam Constitutional: Well developed, well nourished, no acute distress, non-toxic appearance. [] HENT: Normocephalic, atraumatic, bilateral external ears normal, oropharynx moist, no oral exudates, nose normal. [] Eyes: PERRLA, EOMI, conjunctiva normal, no discharge. [] Neck: Normal range of motion, no tenderness, supple, no stridor. [] Cardiovascular:Heart rate regular rhythm, no murmur [] Lungs & Thorax: Bilateral breath sounds clear to auscultation [] Abdomen: Bowel sounds normal, soft, no tenderness, no masses, no pulsatile masses. [] Skin: Warm, dry, no erythema, no rash. [] Back: No tenderness, no CVA tenderness. [] Extremities: No tenderness, no cyanosis, no clubbing, ROM intact, no edema, the patient still has a mild tremor noted to her hands [] Neurologic: Alert and oriented X 3, normal motor function, normal sensory function, no focal deficits noted. [] Psychologic: Affect normal, judgement normal, mood normal. [] Current Patient Data Vital Signs Vital Signs Date Time Temp Pulse Resp B/P (MAP) Pulse Ox O2 Delivery O2 Flow Rate FiO2 05/14/18 21:01 86 18 108/54 (72) 98 Room Air 05/14/18 17:50 98.4 98.4 Lab Values Laboratory Tests Test 05/14/18 17:47 05/14/18 18:50 05/14/18 19:00 05/14/18 20:58 Glucose (Fingerstick) 78 mg/dL (70-99) 130 mg/dL (70-99) H White Blood Count 11.8 x10^3/uL (4.0-11.0) H Red Blood Count 4.16 x10^6/uL (3.50-5.40) Hemoglobin 12.9 g/dL (12.0-15.5) Hematocrit 37.9 % (36.0-47.0) Mean Corpuscular Volume 91 fL (79-100) Mean Corpuscular Hemoglobin 31 pg (25-35) Mean Corpuscular Hemoglobin Concent 34 g/dL (31-37) Red Cell Distribution Width 13.6 % (11.5-14.5) Platelet Count 211 x10^3/uL (140-400) Neutrophils (%) (Auto) 76 % (31-73) H Lymphocytes (%) (Auto) 17 % (24-48) L Monocytes (%) (Auto) 7 % (0-9) Eosinophils (%) (Auto) 0 % (0-3) Basophils (%) (Auto) 1 % (0-3) Neutrophils # (Auto) 8.9 x10^3uL (1.8-7.7) H Lymphocytes # (Auto) 2.0 x10^3/uL (1.0-4.8) Monocytes # (Auto) 0.8 x10^3/uL (0.0-1.1) Eosinophils # (Auto) 0.0 x10^3/uL (0.0-0.7) Basophils # (Auto) 0.1 x10^3/uL (0.0-0.2) Sodium Level 140 mmol/L (136-145) Potassium Level 4.0 mmol/L (3.5-5.1) Chloride Level 102 mmol/L (98-107) Carbon Dioxide Level 25 mmol/L (21-32) Anion Gap 13 (6-14) Blood Urea Nitrogen 13 mg/dL (7-20) Creatinine 0.9 mg/dL (0.6-1.0) Estimated GFR (Cockcroft-Gault) 61.9 BUN/Creatinine Ratio 14 (6-20) Glucose Level 115 mg/dL (70-99) H Calcium Level 9.2 mg/dL (8.5-10.1) Total Bilirubin 0.2 mg/dL (0.2-1.0) Aspartate Amino Transferase (AST) 16 U/L (15-37) Alanine Aminotransferase (ALT) 23 U/L (14-59) Alkaline Phosphatase 61 U/L (46-116) Total Protein 7.7 g/dL (6.4-8.2) Albumin 4.0 g/dL (3.4-5.0) Albumin/Globulin Ratio 1.1 (1.0-1.7) Urine Collection Type Unknown Urine Color Yellow Urine Clarity Clear Urine pH 5.0 Urine Specific [place] 1.020 Urine Protein Negative mg/dL (NEG-TRACE) Urine Glucose (UA) 100 mg/dL (NEG) Urine Ketones (Stick) Negative mg/dL (NEG) Urine Blood Negative (NEG) Urine Nitrite Negative (NEG) Urine Bilirubin Negative (NEG) Urine Urobilinogen Dipstick 0.2 mg/dL (0.2 mg/dL) Urine Leukocyte Esterase Small (NEG) Urine RBC 0 /HPF (0-2) Urine WBC 5-10 /HPF (0-4) Urine Squamous Epithelial Cells Few /LPF Urine Bacteria 0 /HPF (0-FEW) Urine Mucus Slight /LPF Laboratory Tests 05/14/18 18:50 Laboratory Tests 05/14/18 18:50 EKG EKG [] Radiology/Procedures Radiology/Procedures [] Course & Med Decision Making Course & Med Decision Making Pertinent Labs and Imaging studies reviewed. (See chart for details) []The patient was fed a meal in the emergency department her blood sugar was rechecked. She was given a prescription for a refill of her test strips. She is encouraged to fill that this evening so she is able to properly dose her insulin tomorrow. She is to follow-up with her primary care provider within 2 days for recheck. She is to return to the emergency department if worsening. She is in agreement with this plan. The patient was found to have an UTI. She is being treated for that infection. Dragon Disclaimer Dragon Disclaimer This electronic medical record was generated, in whole or in part, using a voice recognition dictation system. Departure Departure Impression: Primary Impression: Hypoglycemia Additional Impression: Urinary tract infection Disposition: 01 HOME, SELF-CARE Condition: STABLE Referrals: DAWNA LUDWIG MD (PCP) Patient Instructions: Hypoglycemia (Low Blood Sugar), Urinary Tract Infection Additional Instructions: Take the antibiotic as directed. Increase fluids and rest. Make sure that you' re eating adequate calories to combat your insulin. Follow-up with your primary care provider within 2 days for recheck. If worsening return immediately to the emergency department. Scripts Sulfamethoxazole/Trimethoprim (BACTRIM DS TABLET) 1 Each Tablet 1 TAB PO BID, #14 TAB Prov: PAULIE GARRIDO APRN 05/14/18 Blood Sugar Diagnostic (Test Strips) 1 Each Strip 1 EACH MC QID for 30 Days, #120 STRIP 3 Refills Prov: PAULIE GARRIDO RESCUE WORKER 05/14/18 Attending Signature Attending Signature I have reviewed the PA/SLITTER SERVICE AND SETTER's note and plan of care. I was available for consultation as needed during the patient's visit in the emergency department. I agree with the clinical impression, plan, and disposition. Problem Qualifiers PAULIE GARRIDO APRN May 14, 2018 21:13 CHIRAG BARDALES DO May 15, 2018 04:34
== END 2018-05-14 21:34 | disposition home or self-care (01) ==
LOC: ER 17:33
DX: E11.649 Type 2 diabetes mellitus with hypoglycemia without coma (principal); N39.0 Urinary tract infection, site not specified; E11.40 Type 2 diabetes mellitus with diabetic neuropathy, unspecified; Z79.4 Long term (current) use of insulin
CPT/HCPCS: 36415; 80053; 81001; 82962; 85025; 87086; 93005; 99285-25

== ENCOUNTER → 2018-09-07 | Outpatient (CLI) | payer MEDICARE ==
[~2018-09-07] MED LIST changes: +BLOO-1207 MC; +HYDR-3164 PO; -HYDR-971 PO; +SULF1TAB24 PO
--- NOTE | 2018-09-07 15:22 | KCIC ---
3 view study of the left shoulder Clinical indications: Left shoulder pain. Decreased range of motion. Past history of a fall. FINDINGS: No acute fracture or dislocation or osteolytic process is evident. There is lateral downsloping of the acromial process. There is spurring of the AC joint. These findings may impinge the acromial humeral space resulting in rotator cuff disease. Chronic erosions of the lateral aspect humeral head are seen secondary to chronic acromial humeral space impingement. MRI study may be helpful for further evaluation if clinically needed. No AC joint separation is seen. IMPRESSION: No acute fracture. See discussion above. Electronically signed by: Marok Oliveira MD (09/07/2018 3:18 PM) [id number]
== END | disposition home or self-care (01) ==
LOC: KCIC 08:54
PROVIDERS: ATTEND Family Medicine
DX: M85.812 Other specified disorders of bone density and structure, left shoulder (principal); M75.82 Other shoulder lesions, left shoulder
CPT/HCPCS: 73030